=== PATIENT | male | born 1945 | race Caucasian/White ===

== ENCOUNTER → 2019-07-04 | Outpatient (CLI) | payer MEDICARE | END | disposition home or self-care (01) | LOC: CVU 08:14 | PROVIDERS: ATTEND Internal Medicine Cardiovascular Disease | DX: I65.23 Occlusion and stenosis of bilateral carotid arteries (principal); I10 Essential (primary) hypertension; I71.4 Abdominal aortic aneurysm, without rupture; I44.7 Left bundle-branch block, unspecified; F17.210 Nicotine dependence, cigarettes, uncomplicated | CPT/HCPCS: 78452; 93017; 93306; 93356; 93880; 93978; A9502; J2785 ==

== ENCOUNTER → 2020-02-07 | Outpatient (CLI) | payer MEDICARE | END | disposition home or self-care (01) | LOC: CFH 09:25 | PROVIDERS: ATTEND Registered Nurse | DX: Z12.2 Encounter for screening for malignant neoplasm of respiratory organs (principal); J43.2 Centrilobular emphysema; J84.10 Pulmonary fibrosis, unspecified; I71.4 Abdominal aortic aneurysm, without rupture; F17.210 Nicotine dependence, cigarettes, uncomplicated; M51.34 Other intervertebral disc degeneration, thoracic region | CPT/HCPCS: G0297 ==

== ENCOUNTER 2020-03-21 12:21 | Emergency (ER) | payer MEDICARE ==
[~2020-03-21] VITALS: Ht 177.8 cm; Wt 56.3 kg
--- NOTE | 2020-03-21 13:00 | NUR ---
PT HAS CO NOT EATING, INCREASED FATIGUE, LOOSE STOOL FOR FEW WEEKS. ETOH DAILY. PT DENIES CP, SOB, OR RECENT TRAUMA.
[2020-03-21 13:37] LABS: BASOPHILS % (AUTO) 1 % (0-1); EOSINOPHILS % (AUTO) 0 % (1-7); LYMPHOCYTES % (AUTO) 13 % (22-44); MEAN CORPUSCULAR HEMOGLOBIN 34.3 pg (27.5-34.5); MEAN CORPUSCULAR HGB CONC 33.6 g/dL (33.2-36.2); MEAN PLATELET VOLUME 9.1 fL (7.4-10.4); MONOCYTES % (AUTO) 4 % (2-9); NEUTROPHILS % (AUTO) 82 % (42-75); PLATELET COUNT 147 x10^3/uL (130-400); RED BLOOD COUNT 3.78 x10^6/uL (4.38-5.82); RED CELL DISTRIBUTION WIDTH 14.3 % (9.4-14.8)
[2020-03-21 13:49] LABS: ALANINE AMINOTRANSFERASE 28 U/L (12-78); ALBUMIN 3.2 g/dL (3.4-5.0); ANION GAP 10 mmol/L (5-15); CALCIUM 8.7 mg/dL (8.5-10.1); CHLORIDE 105 mmol/L (98-107); CREATININE 1.47 mg/dL (0.7-1.3)
[2020-03-21 13:53] LABS: ALKALINE PHOSPHATASE 77 U/L (45-117); BILIRUBIN,TOTAL 0.6 mg/dL (0.2-1.0); TOTAL PROTEIN 6.2 g/dL (6.4-8.2); TROPONIN I < 0.015 ng/mL (0.000-0.045)
--- NOTE | 2020-03-21 14:06 | NUR ---
PT UPRIGHT ON GURNEY AWAKE & COMFORTABLE, RESPONDS APPROP TO STAFF, NAD, AT , NO NEEDS AT THIS TIMW, CALL LIGHT WITHIN REACH.
[2020-03-21 14:18] LABS: MD SCAN
--- NOTE | 2020-03-21 14:56 | NUR ---
PT AMBULATED TO BATHROOM .
--- NOTE | 2020-03-21 15:24 | NUR ---
AT BEDSIDE. POC FOR DC
[2020-03-21 15:41] VITALS: BP 119/69
--- NOTE | 2020-03-21 15:42 | NUR ---
Patient/Caregiver given discharge instructions and they have confirmed that they understand the instructions. Patient ambulatory with steady gait.
== END 2020-03-21 15:49 | disposition home or self-care (01) ==
LOC: ED 14:30
DX: N28.9 Disorder of kidney and ureter, unspecified (principal); R00.0 Tachycardia, unspecified; R07.9 Chest pain, unspecified; J44.9 Chronic obstructive pulmonary disease, unspecified; F17.200 Nicotine dependence, unspecified, uncomplicated
CPT/HCPCS: 36415; 71045; 80053; 83735; 84443; 84484; 85025; 93005; 99285

== ENCOUNTER → 2020-07-26 | Outpatient (CLI) | payer MEDICARE | END | disposition home or self-care (01) | LOC: CVU 11:57 | PROVIDERS: ATTEND Physician Assistant | DX: I71.4 Abdominal aortic aneurysm, without rupture (principal); I35.1 Nonrheumatic aortic (valve) insufficiency; R53.83 Other fatigue; J44.9 Chronic obstructive pulmonary disease, unspecified; I77.1 Stricture of artery; I10 Essential (primary) hypertension; Z87.891 Personal history of nicotine dependence | CPT/HCPCS: 93306; 93971; 93978 ==

== ENCOUNTER → 2020-09-11 | Outpatient (CLI) | payer MEDICARE | END | disposition home or self-care (01) | LOC: CVU 07:49 | PROVIDERS: ATTEND Anesthesiology | DX: I70.8 Atherosclerosis of other arteries (principal); R60.9 Edema, unspecified | CPT/HCPCS: 93922; 93925 ==